=== PATIENT | male | born 1955 | race Caucasian/White ===

== ENCOUNTER 2025-06-30 17:30 | Emergency (ER) | payer MEDICARE, OTHER, SELFPAY ==
--- OUTSIDE RECORDS SUMMARY | 2025-06-30 17:32 | XMS_ITS | Clinical Summary ---
Author Organization [facility] Address [address] [place] [address] Care Team Providers Care Blueprinting Machine Operator Name Role Phone Jorge L Cid MD Primary Care Provider [phone] Devaughn Hernandez MD Unavailable [phone] Ludin Mitchell MD Unavailable [phone] Allergies Active Allergy Reactions Criticality Noted Date Comments Venom-Honey Bee Hives 07/24/2023 Iodine Rash 11/28/2009 Topical Medications multivitamin (MVI) tablet Take 1 tablet by mouth once daily. 0 12/02/19 12 Active omega-3 fatty acids-vitamin E (FISH OIL) 1,000 mg cap Take 1 capsule by mouth once daily. Active tadalafiL (CIALIS) 20 mg tabletIndication s:Erectile dysfunction, unspecified erectile dysfunction type Take 30 minutes before sexual activity. 36 tablet. 6 11/24/19 21 Active EPINEPHrine (EpiPen 2-Isaiah) 0.3 mg/0.3 mL auto-injectorInd ications:Food allergy Inject 0.3 mg (1 Pen) intramuscular each time if needed for Allergic Reaction. 2 Each 1 08/06/20 24 Active lisinopriL (PRINIVIL; ZESTRIL) 20 mg tabletIndication s:Essential hypertension Take 1 Tablet (20 mg) by mouth once daily. 90 Tablet 3 08/06/20 24 Active omeprazole (PRILOSEC) 20 mg Delayed-Release capsuleIndicatio ns:Gastroesophag eal reflux disease, unspecified whether esophagitis present Take 1 Capsule (20 mg) by mouth once daily before a meal. 90 Capsule 3 08/06/20 24 Active fluticasone (50 mcg per actuation) nasal solution (FLONASE)Indicat ions:Chronic nasal congestion Inhale 2 Sprays in both nostrils once daily. 48 g 11 11/23/19 25 Active CPAPIndications: Obstructive sleep apnea syndrome CPAP (E0601) machine for home use at pressure: 7 cmH2O, Cflex +3, Choice of mask (A7030 or A7034) w/full face cushion (A7031) x1/mo, nasal cushion (A7032) x2/mo, or nasal pillows (A7033) x 2/mo; Heated humidifier (E0562) x 1/5 year, Humidifier chamber (A7046) x 1/6mo, Chinstrap (A7036) x 1/6mo, Tubing (A4604 or A7037) x 1/3mo, Headgear (A7035) x 1/6mo, Filters: Disposable (A7038) x 2pk/1mo & Reusable (A7039) x 1pk/6mo; Length of Need: 99 months; Frequency of use: Daily DME: [facility] 11/23/19 25 Active clonazePAM (KLONOPIN) 2 mg tabletIndication s:RLS (restless legs syndrome) Take 1 Tablet (2 mg) by mouth at bedtime. 90 Tablet 1 05/25/20 25 Active Active Problems Problem Noted Date Diagnosed Date Colon polyp 04/13/2025 Overview (04/13/2025): Colonoscopy 03/2025 TA, repeat in 5 years s/p right shoulder arthrosco pic subscapularis repair, extensive glenohumeral debridement, AC joint resection, subacromial decompression, DOS: 01.06.2024 01/08/2024 Rupture long head biceps tendon, right, initial encounter 01/08/2024 Bilateral genetic rotator cu ff disease, left more progressed than right 08/08/2023 Prediabetes 07/25/2023 Overview (08/17/2024): Jul 2024: Glucose 111, Hemoglobin A1c 5.9. Hypertriglyceridemia 07/25/2023 Rupture of left long head biceps tendon 07/24/20 Gastroesophageal reflux disease 07/24/2023 Bee sting allergy 07/24/2023 BPH without urinary obstruction 03/25/2022 Overview (03/25/2022): Rezum procedure discussed with urology. Hepatic steatosis 06/11/2021 Puncture wound of left hand without foreign body 11/17/2019 Traumatic injury of digital nerve of hand 2019 Status post right total knee arthroplasty, DOS: 05/03/[address] Johnson 08/06/2019 Status post left knee replac ement DOS: 06/29/[address] Johnson 07/08/2019 Neuropathic pain 06/02/2019 Nasal obstruction 04/01/2019 RLS (restless legs syndrome) 04/23/2017 Overview (04/23/2017): On Klonopin 2mg at bedtime. Dr. Mcadams [place] [facility]. Essential hypertension 04/23/2017 Overview (12/17/2018): March 2017: lisinopril 10mg started October 2018: increased lisinopril from 10 to 20mg. Nov 2018: increased lisinopril to 40mg. Nov 2018: side effects from lisinopril, stopping lisinopril and change to amlodipine. Chronic insomnia 03/29/2016 ELLE on CPAP 12/13/2013 Elevated prostate specific antigen (PSA) 012 Overview (08/17/2024): Seeing Dr. Henrandez. Jul 2024: PSA 7.1. Family history of colonic polyps 11/28/2009 Overview (11/29/2014): Colonoscopy 10/2009 normal repeat in 5 years Colonoscopy 11/2014 normal repeat in 5 years ECZEMA 11/14/2000 Resolved Problems Problem Noted Date Diagnosed Date Resolved Date Elevated LFTs 04/24/2021 06/18/2022 Mixed dyslipidemia 04/23/2021 Primary osteoarthritis of both knees 05/17/2017 04/24/2021 Overview (02/10/2019): December 2016: Dr. Connelly did bilateral knee cortisone injections. April 2017: Dr. Cid did bilateral knee Synvisc ONE injections, nearly 100% relief for almost 6 months. October 2017: Repeat bilateral Synvisc ONE injections, 60% relief for 5 months. April 2018: Repeat Bilateral Synvisc ONE injections, Good response for 90% pain relief for 5 months. Nov 27, 2018: bilateral cortisone injections, great benefit in pain but only lasted 2 months. February 10, 2019: bilateral Synvisc ONE injections to both knees by Dr. Cid. Mixed hyperlipidemia 12/14/2012 021 Primary osteoarthritis of right knee 04/24/2021 Encounters Date Type Department Care Team Description 05/25/2025 9:00 AM CDT Telemedicine [facility] [address] [facility] [address] [place] [address] Ludin Mitchell MD Sleep Follow-up 05/20/2025 Travel 04/12/2025 7:30 AM CDT - 04/12/2025 11:59 PM CDT Hospital Encounter Hugh Powers MD 04/12/2025 Orders Only [facility] Scanner 1 scan: (1-Ord) [facility] 04/12/2025 Lab Requisition [facility] [phone] Hugh Powers MD 04/12/2025 Orders Only [facility] [place] [id number] [facility] [address] [place] [address] Hugh Powers MD <No scans attached> 04/12/2025 Surgery [facility] [address] [facility] [address] [place] [address] Hugh Powers MD colonoscopy, screening 04/05/2025 Telephone [facility] [address] [place] [address] Hugh Powers MD Appointment Reminder (Colonoscopy on 04/12/2025 at [facility]) from Last 3 Months Immunizations Immunization Administration Dates Next Due Hepatitis A (Adult) 12/14/2012,11/08/2004 Inactivated Polio Vaccine 11/08/2004 Influenza Virus, Unspecified 10/04/2019, 07/05/2019,08/13/2011,2005 Influenza, IIV3 (Age >=3 years) 08/05/20 13,07/30/2012,08/22/2011,2007,09/29/2007,11/08/2004 Influenza, IIV4 10/04/2019, 8,12/09/2016,2014,08/01/2014 Influenza, IIV4 (=>6mos) MDV 08/29/2017 Pneumococcal conj 13-Valent (Prevnar 13) 04/14/2020 Td (Age >=7 Years) 11/08/2004 Tdap 12/14/2012 Zoster (Zostavax-ZVL, live) 12/19/2014, 5 Family History Medical History Relation Name Comments Cancer-prostate Brother age 58 Benign prostatic hyperplasia Father Cancer-colon Father age 78 Other Father pancreatic ca , age 83 Good Health Mother Cancer-colon Paternal Grandmother Other Paternal Uncle pancreatic ca Relation Name Status Comments Brother Father Mother Alive Paternal Grandmother Paternal Uncle Social History Tobacco Use Types Packs/Day Years Used Date Smoking Tobacco: Former Cigarettes 1 10 0 03/28/1977 - 03/28/1987 Passive Smoke Exposure: Never Smokeless Tobacco: Never Tobacco Cessation:Counseling Given: Not Answered Comments:quit smoking 1986 Alcohol Use Standard Drinks/Week Comments Yes 5 (1 standard drink = 0.6 oz pur e alcohol) 2020 5 times a week PHQ-2 Answer Date Recorded PHQ-2 TOTAL SCORE 0 08/02/2024 Social Connections Answer Date Recorded Do you often feel lonely or isolated from those around you? 0 08/06/2024 Financial Resource Strain Answer Date R ecorded Difficulty of Paying Living Expenses 3 08/06/2024 Difficulty of Paying Living Expenses Not on file 08/06/2024 Food Insecurity Answer Date Recorded Do you worry your food will run out before you are able to buy more? 1 08/06/2024 Transportation Needs Answer Date Record ed Does lack of transportation keep you from medica l appointments? 1 08/06/2024 Does lack of transportation keep you from work, meetings or getting things that you need? 1 08/06/2024 Housing Stability Answer Date Recorded What is your housing situation today? 1 08/06/2024 Utilities Answer Date Recorded Do you have trouble paying f or utilities (for example, heat, electricity, water, phone)? 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 on file Not on file Not on file Obstetrics History Last Filed Vital Signs Vital Sign Reading Time Taken Comments Blood Pressure 136/70 11/23/2024 10:01 AM GREETING CARD MAKER Pulse 76 11/03/2024 1:29 PM GREETING CARD MAKER Temperature 36.3 C (97.4 F) 06/02/2020 10:33 AM CDT Respiratory Rate 16 06/04/2023 10:00 AM CDT Oxygen Saturation 99% 11/03/2024 1:29 PM GREETING CARD MAKER Inhaled Oxygen Concentration - - Weight 88 kg (194 lb) 11/23/2024 10:01 AM GREETING CARD MAKER Height 175.3 cm (5' 9) 11/23/2024 10:01 AM GREETING CARD MAKER Body Mass Index 28.65 11/23/2024 10:01 AM GREETING CARD MAKER Plan of Treatment Health Maintenance Due Date Last Done Comments Zoster (shingles) series for age 50+ (2 of 3) 02/13/2015 12/19/2014, 2014 Pneumococcal series for age 50+ (2 of 2 - PPSV23) 04/14/2021 04/14/2020 Tetanus booster 12/14/2022 12/14/2012, 11/08/2004 COVID-19 vaccine series ( - season) 2024 Influenza Vaccine (#1) 2025 9, 10/04/2019, 07/05/2019, Additional history exists Depression screening for age 12+ 08/06/2025 08/06/2024, 08/02/2024, 07/24/2023, Additional history exists Medicare Wellness for age 65+ 08/07/2025 08/06/2024, 07/24/2023, 06/17/2022, Additional history exists BMI (ht and wt on same day) for age 18+ 11/23/2025 11/23/2024, 08/06/2024, 12/29/2023, Additional history exists Lipids for age 45-75 08/16/2029 08/16/2024, 07/24/2023, 06/17/2022, Additional history exists RSV vaccine for adults or (1 - 1-dose 75+ series) 2029 Colonoscopy through age 75 04/12/203004/12, 04/05/2020, 11/29/2014, Additional history exists AAA screening age 65-74 Completed 04/24/2020 Hepatitis C screening for age 18-79 Completed 05/24/2021, 06/02/2019 Hepatitis B series for 19+ Aged Out N o longer eligible based on patient's age to complete this topic Medical Devices Implanted Type Area Breakfast Bar Attendant Device Identifier Shelf Expiration Date Model / Serial / Lot Cmnt Bone Simplex P 1pk - [id number] Implanted:Qty: 2 on 05/03/2019 by Dony Johnson MD at [facility] Right: Knee [employer] 06/26/2021 6191-1-00 1# / / [id number] Patella [id number] Triathlon Asymmetric X3 - [id number] Implanted:Qty: 1 on 05/03/2019 by Dony Johnson MD at [facility] Right: Knee [employer] 02/17/2024 5551-G-35 0# / / [id number] Baseplate Tib Sz5 Triathlon Pe - [id number] Implanted:Qty: 1 on 05/03/2019 by Dony Johnson MD at [facility] Right: Knee [employer] 02/08/2024 5521-B-50 0# / / [id number] Fem Rt Sz4 Triathlon Cruc Ret Co Cr - [id number] Implanted:Qty: 1 on 05/03/2019 by Dony Johnson MD at [facility] Right: Knee [employer] 09/23/2023 5510-F-40 2# / / [id number] Triathlon X3 Tibial Bearing Insert - Cs - [id number] Implanted:Qty: 1 on 05/03/2019 by Dony Johnson MD at [facility] Right: Knee [employer] 09/09/2023 5531-G-51 4-E / / [id number] Description:Triathlon X3 Tib ial Bearing Insert - CS EDIS 5 TYP CS THKNS 14 mm Patella [id number] Triathlon Asymmetric X3 - [id number] Implanted:Qty: 1 on 06/29/2019 by Dony Johnson MD at [facility] Left: Knee [employer] 01/31/2024 5551-G-35 0# / / [id number] Insert Knee Sz5 11mm Triathloncondyle Stbz X3 - [id number] Implanted:Qty: 1 on 06/29/2019 by Dony Johnson MD at [facility] Left: Knee [employer] 04/01/2024 5531-G-51 1# / / [id number] Cmnt Bone Simplex P 1pk - [id number] Implanted:Qty: 1 on 06/29/2019 by Dony Johnson MD at [facility] Left: Knee [employer] 04/25/2021 6191-1-00 1# / / [id number] Cmnt Bone Simplex P 1pk - [id number] Implanted:Qty: 1 on 06/29/2019 by Dony Johnson MD at [facility] Left: Knee [employer] 06/26/2021 6191-1-00 1# / / [id number] Baseplate Tib Sz5 Triathlon Pe - [id number] Implanted:Qty: 1 on 06/29/2019 by Dony Johnson MD at [facility] Left: Knee [employer] 03/17/2024 5521-B-50 0# / / [id number] Fem Lt Sz4 Triathlon Cruc Ret Co Cr - [id number] Implanted:Qty: 1 on 06/29/2019 by Dony Johnson MD at [facility] Left: Knee [employer] 03/17/2024 5510-F-40 1# / / [id number] Procedures Procedure Name Priority Date/Time Associated Diagnosis Comments LAB TRACKING EVENT Routine 04/12/2025 7: 59 AM CDT PATH TISSUE EXAM Routine 04/12/2025 7:59 AM CDT SCAN-COLONOSCOPY 04/12/2025 12:0 0 AM CDT LIPID PANEL W REFLEX MEASURED LDL Routine 08/16/2024 9:56 AM CDT Mixed dyslipidemia ANTI HCV Routine 05/24/2021 11:37 AM CDT Elevated LFTs US ABD AORTA SCREENING Routine 04/24/2020 9:05 AM CDT Personal history of tobacco use, presenting hazards to health SURGICAL PROCEDURE (TYPE PROCEDURE DESCRIPTION BELOW) Encounter for screening colonoscopy from Last 3 Months or Most Recently Relevant to Health Maintenance Results * LAB TRACKING EVENT (04/12/2025 7:59 AM CDT) Other (Other) Client Collect / Unknown 04/12/2025 7:59 AM CDT 04/12/2025 5:51 PM CDT us Hugh Powers MD LAB BILL ONLY Final Res ult [facility] [address] [place] [address], * PATH TISSUE EXAM (04/12/2025 7:59 AM CDT) Case Report Pathology Report Case: [id number] Authorizing Provider: Hugh Powers MD Collected: 04/12/2025 0759 Ordering Location: [facility] Received: 04/12/2025 1822 Pathologist: Braden Norman MD Specimen: Sigmoid Biopsy 04/13/2025 11:42 AM CDT [facility] Final Diagnosis A) COLON, SIGMOID, POLYPECTOMY: 1. Tubular adenoma 2. Negative for high grade dysplasia 3. Per the colonoscopy report: a. Polyp size: 2 mm b. Resection: Complete c. Retrieval: Complete 04/13/2025 11:42 AM CDT [facility] at 1142 CDT Clinical Information Screening colonoscopy 04/13/2025 11:42 AM CDT [facility] Gross Description A) Received in formalin are 4 plunkett mucosal fragments ranging from 2 mm to 4 mm in greatest dimension, which are entirely submitted in one cassette. It is labeled with the patient's name and designated A, sigmoid polyp. Marito Shirley 04/12/2025 6:45 PM 04/13/2025 11:42 AM CDT [facility] Microscopic Description The final diagnosis is based on microscopic examination of appropriate sections of all specimens. 04/13/2025 11:42 AM CDT [facility] Additional Information Interpreted at [facility] - [address] [place] [address]. [facility] [address], [place] [address] 04/13/2025 11:42 AM CDT [facility] Other (Sigmoid Biopsy) 04/12/2025 7:59 AM CDT 04/12/2025 6:22 PM CDT Hugh Powers MD PATHOLOGY/CYTOLOGY Final Result [facility] [address] [place] [address], * SCAN-COLONOSCOPY (04/12/2025 12:00 AM CDT) us Scanner OTHER Final Result * (ABNORMAL) LIPID PANEL W REFLEX MEASURED LDL (08/16/2024 9:56 AM CDT) CHOLESTEROL, TOTAL 217(H) <200 mg/dL [facility] HDL CHOLESTEROL 43 > OR = 40 mg/dL [facility] TRIGLYCERIDES 226(H) <150 mg/dL [facility] Comment: If a non-fasting specimen was collected, consider repeat triglyceride testing on a fasting specimen if clinically indicated. Ernie et al. J. of Clin. Lipidol. 2015;9:129-169. LDL-CHOLESTEROL 138(H) mg/dL (calc) [facility] Comment: Reference range: <100 Desirable range <100 mg/dL for primary prevention; <70 mg/dL for patients with CHD or diabetic patients with > or = 2 CHD risk factors. LDL-C is now calculated using the Eliseo calculation, which is a validated novel method providing better accuracy than the Friedewald equation in the estimation of LDL-C. Hugh LOCKE et al. PORFIRIO. 2013;310(19): 3139-5426 (http://education.Intern [place]/faq/HWF187) CHOL/HDLC RATIO 5.0(H) <5.0 (calc) [email or web address] NON HDL CHOLESTEROL 174(H) <130 mg/dL (calc) [facility] Comment: For patients with diabetes plus 1 major ASCVD risk factor, treating to a non-HDL-C goal of <100 mg/dL (LDL-C of <70 mg/dL) is considered a therapeutic option. Blood BLOOD SPECIMEN / Unknown 08/16/2024 9:56 AM CDT 08/16/2024 9:56 AM CDT Jorge L Cid MD CHEMISTRY Final Res ult [facility] [address] [address], [employer] [address] * ANTI HCV (05/24/2021 11:37 AM CDT) HEPATITIS C ANTIBODY Non-React khushboo Non-React khushboo 05/24/2021 4:56 PM CDT [facility] Comment:Antibodies to HCV no t detected; does not exclude the possibility of exposure to HCV. Blood BLOOD SPECIMEN / Unknown Venipuncture / Unknown 05/24/2021 11:37 AM CDT 05/24/2021 11:37 AM CDT Zoe Connelly DO SEND OUTS Final Resul t [facility] [address] [place] [address], [place] * US ABD AORTA SCREENING [[id number]] (04/24/2020 9:05 AM CDT) Anatomical Region Laterality Modality Abdomen, AORTA Ultrasound 04/24/2020 10:2 0 AM CDT Narrative 04/24/2020 10:20 AM CDT CLINICAL HISTORY: Screening examination COMPARISON: none FINDINGS: Measurements of the abdominal aorta are as follows: Proximal aorta: Not visualized cm Mid aorta: 2.2 cm Distal aorta: 2.2 cm The right common iliac artery measures 1.3 cm, left common iliac artery 1.4 cm. IMPRESSION: Normal ultrasound abdominal aorta. Dictated by Elliot eCja MD @ Apr 24 2020 10:20AM (Electronically Signed) Procedure Note Elliot Ceja MD - 04/24/2020 CLINICAL HISTORY: Screening examination COMPARISON: none FINDINGS: Measurements of the abdominal aorta are as follows: Proximal aorta: Not visualized cm Mid aorta: 2.2 cm Distal aorta: 2.2 cm The right common iliac artery measures 1.3 cm, left common iliac artery1.4 cm. IMPRESSION: Normal ultrasound abdominal aorta. Dictated by Elliot Ceja MD @ Apr 24 2020 10:20AM (Electronically Signed) Zoe Greene Godwin DO US Final Resul t from Last 3 Months or Most Recently Relevant to Health Maintenance Insurance [facility] [place] [address] MEDICARE RR PART B PB ONLY MEDICARE RR PART B HB ONLY [facility] Advance Directives * Full Code (Latest Code Status on File) Date Activated Date Inactivated Comments 06/29/2019 8:29 AM 06/30/2019 3:55 PM * Full Code Date Activated Date Inactivated Comments 05/03/2019 11:04 AM 05/04/2019 4:34 PM * Full Code Date Activated Date Inactivated Comments 08/24/2015 2:54 PM 08/25/2015 4:27 PM * Full Code Date Activated Date Inactivated Comments 08/24/2015 10:33 AM 08/24/2015 2:54 PM Care Teams Blueprinting Machine Operator Relationship Specialty Start Date End Date Jroge [place] [address] PCP - General Family Practice 12/29/23 Devaughn Hernandez MD [address] [place] [address] Urology Surgery - Urology 08/08/24 Ludin Mitchell MD [address] [place] [id number] Pulmonology Pulmonary Medicine 08/08/24
[2025-06-30 17:34] VITALS: BP 149/84; PULSE 98; RESP 18; TEMP 38.3; O2SAT 98
[2025-06-30] MEDS: ACETAMINOPHEN 500 MG TABLET 1000 MG PO (18:45)
[2025-06-30 18:49] LABS: Appearance Urine Clear (Clear)
[2025-06-30 19:02] LABS: Hematocrit 40.9 % (37.0-53.0); Hemoglobin* 13.6 gm/dL (13.5-17.5); Immature Granulocytes Pct Auto 0.2 %; Mean Corpuscular HGB Conc 33 gm/dL (32-36); Mean Corpuscular Hemoglobin 30 pg (26-34); Mean Corpuscular Volume 90 fL (80-100); RDW Coefficient of Variation % 12.7 % (11.5-15.5); Red Blood Count 4.55 m/uL (4.30-5.90); White Blood Count* 14.43 K/uL (4.50-11.00)
[2025-06-30 19:06] LABS: Immature Granulocytes Abs Auto 0.00 K/uL (0.00-0.30); Lymphocytes Absolute Auto 1.10 K/uL (0.90-2.90); Slide Review Reflex No
[2025-06-30 19:17] LABS: Lactate* 1.3 mmol/L (0.5-1.9)
[2025-06-30 19:37] LABS: Chloride* 99 mmol/L (96-114)
[2025-06-30 19:38] LABS: Potassium* 3.8 mmol/L (3.6-5.1); Sodium* 135 mmol/L (135-149)
[2025-06-30 19:40] LABS: Blood Urea Nitrogen* 18 mg/dL (7-30); Creatinine* 0.9 mg/dL (0.5-1.5); Estimated Glomerular Filt Rate 92 ml/min
[2025-06-30 19:41] LABS: Anion Gap 8 mEq/L (7-15); Calcium* 9.1 mg/dL (8.4-10.6); Carbon Dioxide* 28 mmol/L (20-32); Glucose* 95 mg/dL (60-115)
[2025-06-30] MEDS: cefTRIAXone 1 GM in 0.9 % SODIUM CHLORIDE Mini-bag 100 ML IVPB (20:12)
--- NOTE | 2025-07-01 00:52 | ED.GENADULT ---
HPI - General Adult General Date Seen: 06/30/25 Chief complaint: Urogenital Problems, Male Stated complaint: UTI Time Seen by Provider: 06/30/25 18:09 History of Present Illness HPI narrative: Very pleasant 69-year-old gentleman presenting to the ER today accompanied by his . He is concerned for urinary tract infections and potential for developing sepsis. He has a history of 1 previous urinary tract infection about 10 years ago that was initially diagnosed in [facility]. However by the time he got home here to [place] he was worsening and got admitted for IV antibiotics because he developed sepsis. He does not have any other urinary trouble. No history of urinary retention or BPH. He has not have cancer. No history of diabetes or immunosuppression. Couple of days ago he did develop some urinary frequency which is unusual for him. He is not having dysuria (which was a symptom he had with his previous urinary infection). No abdominal pain. No flank pain. No urinary retention. Beginning this afternoon he started to feel feverish and a little bit chilled. Temp went up to 100.9 at. He is not vomiting. No flank pain. Related Data Home Medications ?Medication ?Instructions ?Recorded ?Confirmed clonazepam 2 mg tablet 2 mg PO QPM 06/30/25 06/30/25 fluticasone propionate 50 2 spray intranasal DAILY 06/30/25 06/30/25 mcg/actuation nasal spray,suspension lisinopril 20 mg tablet 20 mg PO DAILY 06/30/25 06/30/25 omeprazole 20 mg capsule,delayed 20 mg PO DAILY 06/30/25 06/30/25 release Previous Rx's ?Medication ?Instructions ?Recorded cephalexin 500 mg capsule 500 mg PO BID #14 caps 06/30/25 Allergies Allergy/AdvReac Type Severity Reaction Status Date / Time No Known Drug Allergies Allergy Verified 06/30/25 17:37 PFSH PFS Social History Do you use any of these nicotine containing products: None Exam Narrative: Exam Narrative: Constitutional: Appears well-developed and well-nourished. Alert. Conversant. Non toxic. HENT: Head: Atraumatic. Nose: Nose normal. Mouth/Throat: Oral mucosa is clear and moist. no trismus. Pharynx normal. Tonsils symmetric. No tonsillar enlargement, erythema, or exudate. Eyes: Conjunctivae normal. EOM normal. Pupils equal, round, and reactive to light. No scleral icterus. Neck: Normal range of motion. Neck supple. No tracheal deviation present. Cardiovascular: Normal rate, regular rhythm. No gallop. No friction rub. No murmur heard. Symmetric radial artery pulses Pulmonary/Chest: Effort normal. No stridor. No respiratory distress. No wheezes. No rales. No rhonchi . No tenderness. Abdominal: Soft. Bowel sounds normal. No distension. No mass. No tenderness. No rebound. No guarding. Musculoskeletal: RUE: Normal range of motion. No tenderness. No deformity LUE: Normal range of motion. No tenderness. No deformity RLE: Normal range of motion. No edema. No tenderness. No deformity LLE: Normal range of motion. No edema. No tenderness. No deformity Neurological: Alert and oriented to person, place, and time. Normal strength. CN II-VII intact. No sensory deficit. GCS eye subscore is 4. GCS verbal subscore is 5. GCS motor subscore is 6. Normal coordination Skin: Skin is warm and dry. No rash noted. No pallor. Normal capillary refill. Psychiatric: Normal mood. Normal affect. Const: Vital Signs, click to edit/add: Vital Signs - 24 hr 06/30/25 17:34 Temperature 100.9 F H Pulse Rate [Pulse Oximeter] 98 Respiratory Rate 18 Blood Pressure [Ri ght Upper Arm] 149/84 H Pulse Oximetry 98 Oxygen Delivery Me thod Room Air Course Course ED Course: Recheck-says he is feeling better. Will order 1 g Rocephin Vital Signs Vital signs: Initial Vital Signs Temperature 100.9 F H 06/30/25 17:34 Temperature Source Temporal Artery Scan 06/30/25 17:34 Pulse Rate 98 06/30/25 17:34 Pulse Rhythm Regular 06/30/25 17:34 Respiratory Rate 18 06/30/25 17:34 Blood Pressure 149/84 H 06/30/25 17:34 Blood Pressure Mean 105 06/30/25 17:34 Blood Pressure Position Sitting 06/30/25 17:34 Pulse Oximetry 98 06/30/25 17:34 Oxygen Delivery Method Room Air 06/30/25 17:34 Vital Signs Temperature 100.9 F H 06/30/25 17:34 Pulse Rate 98 06/30/25 17:34 Respiratory Rate 18 06/30/25 17:34 Blood Pressure 149/84 H 06/30/25 17:34 Pulse Oximetry 98 06/30/25 17:34 Oxygen Delivery Method Room Air 06/30/25 17:34 Temperature 100.9 F H 06/30/25 17:34 Pulse Rate 98 06/30/25 17:34 Respiratory Rate 18 06/30/25 17:34 Blood Pressure 149/84 H 06/30/25 17:34 Pulse Oximetry 98 06/30/25 17:34 Oxygen Delivery Method Room Air 06/30/25 17:34 Medications Administered Medications: Discontinued Medications Generic Name Dose Route Start Last Admin Trade Name Rosy PRN Reason Stop Dose Admin Acetaminophen 1,000 mg 06/30/25 18:23 06/30/25 18:45 Acetaminophen 500 Mg Tablet PO 06/30/25 18:24 1,000 mg ONCE ONE Administration Ceftriaxone Sodium 1 gm/ 100 mls @ 200 mls/hr 06/30/25 20:06 06/30/25 20:44 Sodium Chloride IVPB 06/30/25 20:07 Infused ONCE ONE Infusion Medical Decision Making [facility] Narrative Medical decision making narrative: This patient presents for evaluation of []. This clinically is consistent with a urinary tract infection. Urinalysis confirms the infection. There has been no fever, back/flank pain or significant abdominal pain. At this point I do not think he needs CT scan to look for kidney stone. There is no clinical evidence of pyelonephritis, appendicitis, colitis, diverticulitis or any intraabdominal catastrophe. He does have a low-grade fever and a white count of 14.4.. However no other evidence for urosepsis. He is hemodynamically stable. At this point I do not think he needs hospitalization. However we will start him on IV antibiotics (Rocephin 1 g). Will discharge home on cephalexin 500 b.i.d. for 7 days. The patient will be started on antibiotics for the infection. Return if increasing pain, vomiting, fever, or inability to tolerate the oral antibiotic. Follow up with primary physician is indicated if not improving in 2-3 days. Lab Data Labs: Lab Results 06/30/25 06/30/25 Range/Units 18:30 18:42 WBC 14.43 H (4.50-11.00) K/uL RBC 4.55 (4.30-5.90) m/uL Hgb 13.6 (13.5-17.5) gm/dL Hct 40.9 (37.0-53.0) % MCV 90 (80-100) fL MCH 30 (26-34) pg MCHC 33 (32-36) gm/dL RDW Coeff of Lizzeth 12.7 (11.5-15.5) % Plt Count 185 (140-440) K/uL Neut % (Auto) 80.8 H (42.0-72.0) % Lymph % (Auto) 7.4 L (20-44) % [place] % (Auto) 10.7 (0.0-11.0) % Eos % (Auto) 0.6 (0.0-7.0) % Baso % (Auto) 0.3 (0.0-3.0) % Neut # (Auto) 11.70 H (1.7-7.0) K/uL Lymph # (Auto) 1.10 (0.90-2.90) K/uL [place] # (Auto) 1.50 H (0.00-0.90) K/UL Eos # (Auto) 0.10 (0.00-0.50) K/uL Baso # (Auto) 0.00 (0.00-0.30) K/uL Abs Immat Gran (auto) 0.00 (0.00-0.30) K/uL Imm/Tot Granulo (auto) 0.2 % Sodium 135 (135-149) mmol/L Potassium 3.8 (3.6-5.1) mmol/L Chloride 99 (96-114) mmol/L Carbon Dioxide 28 (20-32) mmol/L Anion Gap 8 (7-15) mEq/L BUN 18 (7-30) mg/dL Creatinine 0.9 (0.5-1.5) mg/dL Estimated GFR 92 ml/min Glucose 95 (60-115) mg/dL Lactate 1.3 (0.5-1.9) mmol/L Calcium 9.1 (8.4-10.6) mg/dL Urine Color Yellow (Yellow) Urine Appearance Clear (Clear) Urine pH 7.0 (5.0-8.5) Ur Specific [place] 1.025 (1.000-1.030) Urine Protein Negative (Negative) Urine Glucose (UA) Negative (Negative) Urine Ketones Negative (Negative) Urine Blood Trace-intact A (Negative) Urine Nitrite Negative (Negative) Urine Bilirubin Negative (Negative) Urine Urobilinogen 0.2 (0.2-1.0) Ur Leukocyte Esterase 3+ A (Negative) Urine RBC 2-5 A (0-2) Urine WBC 5-10 A (0-5) Ur Squamous Epith Cells Few (None-Few) Urine Bacteria Few A (None) Discharge Plan Discharge Clinical Impression: Urinary tract infection Patient Disposition: Home, Self-Care Condition: Stable Instructions: Urinary Tract Infection in Men (DC) Additional Instructions: As we discussed, so far your workup looks reassuring. You have been given a dose of antibiotic in your IV called Rocephin. I sent a prescription to your pharmacy for another antibiotic called cephalexin. Start the oral antibiotic tomorrow morning and take it twice daily for 7 days. As we discussed, your urine culture is pending in the laboratory. It typically will come back in a day or 2. If it grows an unusual strain of bacteria or we need to change her antibiotics, you will receive a phone call from the [facility] ER. Continue to monitor your condition carefully. Drink plenty of fluids and stay hydrated. Use Tylenol if needed for fever. If you have worsening symptoms such as high fever, vomiting, abdominal pain or flank pain, weakness, inability to urinate, or any other problems please return to the ER right away. Activity Level: No Restrictions Discharge Diet: Regular Prescriptions: New cephalexin 500 mg capsule 500 mg PO BID Qty: 14 0RF No Action lisinopril 20 mg tablet 20 mg PO DAILY clonazepam 2 mg tablet 2 mg PO QPM omeprazole 20 mg capsule,delayed release(DR/EC) 20 mg PO DAILY fluticasone propionate 50 mcg/actuation spray,suspension 2 spray INTRANASAL DAILY Follow Up/Referrals: Jorge L Cid MD [Primary Care Provider, Family Practice] Stand Alone Forms: [employer] Info Instructions
== END 2025-06-30 20:26 | disposition home or self-care (01) ==
PROVIDERS: Emergency Provider Emergency Medicine; PCP Family Medicine
DX: N39.0 Urinary tract infection, site not specified (principal)
CPT/HCPCS: 36415; 51798; 80048; 81001; 83605; 85025; 87086; 99283; 99284; A9270; J0696